=== PATIENT | male | born 1980 ===

== ENCOUNTER 2019-11-01 21:48 | Emergency (ER) | payer SELFPAY ==
[2019-11-01] MEDS ORDERED: Albuterol Sulfate 2.5 mg/0.5 ml Neb ONE (22:54)
[2019-11-01] MEDS ORDERED: AMOXicillin 250 MG CAP ONE (23:29)
[2019-11-01] MEDS ORDERED: predniSONE 20 MG TAB ONE (23:29)
--- NOTE | 2019-11-02 00:04 | RAD ---
PORTABLE CHEST: 11/01/19 An AP portable film at 2159 shows a normal sized heart and clear lungs. No infiltrate or effusion was seen. The mediastinum appears normal. There is no vascular congestion or edema. The bony structures showed no acute change. IMPRESSION: No acute thoracic finding. POS: HOME
== END 2019-11-01 23:31 | disposition home or self-care (01) ==
LOC: BURERS 21:48
DX: J98.8 Other specified respiratory disorders (principal)
CPT/HCPCS: 71045; 93005; 94640; 94760; J7512; J7611; J7620